=== PATIENT | female | born 1955 | race African-American/Black ===

== ENCOUNTER → 2025-06-17 | Day surgery (SDC) | payer OTHER, MEDICAID ==
[2025-06-11 12:33] LABS: Hematocrit 39.6 % (36.0-46.0); Hemoglobin 13.0 g/dL (12.2-16.2); Mean Corpuscular Hemoglobin 28.4 pg (28.0-32.0); Mean Corpuscular Volume 86.5 fL (80.0-100.0); Nucleated Red Blood Cells % 0.0 %
[2025-06-11 12:47] LABS: INR 1.03 (0.9-1.15); Partial Thromboplastin Time 30.3 SEC (24.5-34.5); Prothrombin Time 10.9 sec (9.3-11.8)
[2025-06-11 13:04] LABS: Alanine Aminotransferase 16 U/L (7-40); Albumin 4.4 g/dL (3.2-4.8); Alkaline Phosphatase 90 U/L (46-116); Anion Gap 5 (5-15); BUN/Creatinine Ratio 22.0 (10.0-20.0); Blood Urea Nitrogen 22 mg/dL (9-23); Calcium 10.0 mg/dL (8.7-10.4); Carbon Dioxide 31 mmol/L (20-31); Chloride 106 mmol/L (98-107); Potassium 3.8 mmol/L (3.5-5.1); Sodium 142 mmol/L (136-145); Total Protein 6.9 g/dL (5.7-8.2)
[2025-06-11 13:05] LABS: Bilirubin, Total 0.7 mg/dL (0.2-1.0)
[2025-06-11 13:07] LABS: Glucose 70 mg/dL (74-106)
[2025-06-11 13:10] LABS: Urine Protein, UAD Negative (Negative)
[~2025-06-17] VITALS: Ht 165.1 cm; Wt 105.7 kg
[~2025-06-17] MED LIST: LIDOCAINE 1% (LOCAL ANESTH.) PF 5ml SDV IJ ONE; ONDANSETRON HCL 4 MG/2 ML VIAL ONE; PROPOFOL 10 MG/ML 20 ML IV ONE
--- NOTE | 2025-06-17 10:46 | DVHHP2 ---
GI H&P Pre-Op Assessment Date: 06/17/25 Chief complaint: colon cancer screening, incomplete bowel movement HPI: per clinic note Past medical history: per clinic note Past surgical history: per clinic note Family history: per clinic note Physical exam: General: NAD, AAOX3 HEENT: PERRL, no scleral icterus, normal hearing, gums without lesions or bleeding, oropharynx clear without erythema or exudate. Neck: Supple without enlargement of the thyroid, or lymphadenopathy. Chest: Normal size and shape, no tenderness, lung villanueva clear to auscultation and percussion, nonlabored breathing. Heart: RRR, no murmur Abdomen: non-distended, no tenderness to palpation, +BS, no hepatosplenomegaly Extremities: no edema Neurological: CN II-XII intact, sensation intact in all extremities, 5+ strength in all extremities Skin: No rashes, No jaundice Assessment: - colon cancer screening - incomplete bowel movement Plan: - Colonoscopy - Risks (bleeding, infection, perforation, reaction to sedation medications and cardiopulmonary arrest) and benefit of the procedure were explained to patient. Patient agrees to undergo the procedure. SHAMAR SHARP MD Jun 17, 2025 10:46
[2025-06-17 11:08] VITALS: PULSE 59; RESP 15; TEMP 97.5; O2SAT 100
--- NOTE | 2025-06-17 11:08 | DVHOP2 ---
Operative Report DATE OF OPERATION: 06/17/25 PROCEDURE: Colonoscopy. PREOPERATIVE INDICATION: The patient is a 69 -year-old female undergoing colonoscopy for colon cancer screening and incomplete bowel movements. POSTOPERATIVE DIAGNOSES: 1. Few small diverticulosis in the left colon. PROCEDURE PERFORMED BY: Shady Carlson M.D. SCOPE: Olympus videocolonoscope. ASA CLASS: 3 PREOPERATIVE MEDICATIONS: MAC with [employer] PROCEDURE IN DETAIL: After obtaining an informed consent, the patient was placed on left lateral decubitus position. She was then sedated with the above medications. A rectal examination was performed that was normal. The colonoscope was then passed through the anus into the rectosigmoid and through the descending, transverse, and ascending colon up to the cecum with visualization of the appendiceal orifice, base of the cecum and the ileocecal valve. No mass or polyp was observed. There was a few small diverticulosis in the left colon. The colonoscope was then withdrawn. The patient tolerated the procedure well without difficulty. WITHDRAWAL TIME: 6 minutes QUALITY OF THE PREP: [place] Bowel Prep score: 7 COMPLICATIONS : None SPECIMENS: None DISPOSITION: D/C to home PLAN: 1. Repeat colonoscopy in 10 years for colon cancer screening. SHADY CARLSON MD Jun 17, 2025 11:08
--- NOTE | 2025-06-17 11:09 | DVHDS2 ---
Physician Discharge Progress N Final Diagnosis: Diverticulosis Operations or Procedures: Operations or Procedures Colonoscopy Condition on Discharge: Good Disposition: Home Discharge Instructions: Diet: Regular Activity: No Restrictions, As Tolerated Medications: Resume previous home medications Follow Up Care: Discharge Statement: "Patient was advised to return to the ER or call 911 if any headaches, dizziness, shortness of breath, chest pain, abdominal pain, bleeding, fevers, or worsening of medical condition. Patient was counseled about treatment plan, medications, possible side effects, patientverbalized understanding. All questions were answered to the best of my ability. This discharge took greater then 30 minutes in planning, reviewing documentation, counseling the patient, and discussing with other team members." SHAMAR SHARP MD Jun 17, 2025 11:09
[2025-06-17 11:53] VITALS: BP 148/49; PULSE 59; RESP 16; O2SAT 100
== END | disposition home or self-care (01) ==
LOC: GI 08:24
PROVIDERS: ATTEND Internal Medicine Gastroenterology
DX: R19.5 Other fecal abnormalities (principal); K57.30 Diverticulosis of large intestine without perforation or abscess without bleeding; E11.9 Type 2 diabetes mellitus without complications; E66.9 Obesity, unspecified; Z68.38 Body mass index [BMI] 38.0-38.9, adult; Z79.84 Long term (current) use of oral hypoglycemic drugs; Z79.899 Other long term (current) drug therapy; Z98.890 Other specified postprocedural states
CPT/HCPCS: 36415; 45378; 80053; 81001; 82962; 85025; 85610; 85730; J2405; J2704; J7030